=== PATIENT | male | born 1960 | race Two or more races ===

== ENCOUNTER 2022-01-22 21:58 | Emergency (ER) | payer OTHER ==
[~2022-01-22] VITALS: Ht 188 cm; Wt 99.8 kg
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
--- NOTE | 2022-01-22 22:16 | NUR ---
[employer] AT BED SIDE
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
[2022-01-22] MEDS ORDERED: ACETAMINOPHEN ES 500 MG TABLET PO ONE (22:30)
[2022-01-22] MEDS ORDERED: ACETAMINOPHEN ES 500 MG TABLET ONE (22:46)
--- NOTE | 2022-01-22 22:47 | NUR ---
XRAY AT BEDSIDE
--- NOTE | 2022-01-22 22:57 | NUR ---
PT TAKEN FOR CT SCAN
[2022-01-23] MEDS ORDERED: LIDOCAINE 1%-EPI 1:100,000 20 ML VIAL ONE (00:25)
[2022-01-23] MEDS ORDERED: TDAP [DIPH/PERTUSSIS/TET] 0.5 ML VIAL IM ONE ×2 (00:26→00:30)
[2022-01-23] MEDS ORDERED: LIDOCAINE 1%-EPI 1:100,000 20 ML VIAL TP ONE (00:30)
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
--- NOTE | 2022-01-23 01:34 | NUR ---
Patient discharged to home in stable condition. Written and verbal after care instructions given. Patient verbalizes understanding of instruction. Pt ambulatory with a steady gait
[2022-01-23 01:35] VITALS: BP 109/70
== END 2022-01-23 01:54 | disposition home or self-care (01) ==
LOC: ER 22:02
DX: S01.01XA Laceration without foreign body of scalp, initial encounter (principal); R51.9 Headache, unspecified; E78.5 Hyperlipidemia, unspecified; Y04.2XXA Assault by strike against or bumped into by another person, initial encounter; Y93.89 Activity, other specified; Y92.89 Other specified places as the place of occurrence of the external cause; Y99.8 Other external cause status
CPT/HCPCS: 12001; 70450; 72125; 73030; 73130 ×2; 73564; 90471; 90715; 99284; J3490